=== PATIENT | male | born 1965 | race Caucasian/White ===

== ENCOUNTER → 2016-06-09 | Outpatient (CLI) | payer BC ==
--- NOTE | 2016-06-09 16:16 | RAD ---
Left knee radiographs History: Left knee pain for one day, no known injury. Comparison: None. Findings: AP, lateral, and oblique views of the left knee, performed weightbearing. No acute fracture or dislocation is identified. No joint effusion is seen. Minimal tricompartment degeneration is present. Impression: Minimal degeneration. No acute osseous abnormality identified.
== END | disposition home or self-care (01) ==
LOC: DXRADRC 15:29
PROVIDERS: ATTEND Physician Assistant
DX: M25.562 Pain in left knee (principal)
CPT/HCPCS: 73562

== ENCOUNTER → 2018-09-21 | Outpatient (CLI) | payer BC ==
--- NOTE | 2018-09-21 16:24 | RAD ---
AP supine and upright views of the abdomen Clinical indications: Abdominal pain. FINDINGS: There is moderate fecal retention within the right side of the colon. Mild fecal retention is seen with left side of the colon. No obstructive bowel pattern is evident. No air-fluid levels are seen. No free intraperitoneal air is seen. IMPRESSION: No acute abnormality. Electronically signed by: Grover Arizmendi MD (09/21/2018 4:21 PM) [id number]
== END | disposition home or self-care (01) ==
LOC: PMG 11:38
DX: K56.41 Fecal impaction (principal)
CPT/HCPCS: 74019

== ENCOUNTER → 2019-05-04 | Outpatient (CLI) | payer OTHER ==
--- NOTE | 2019-05-04 13:41 | RAD ---
Indications: Right arm for 5 days. No known injury. Two-view right humerus study: No acute fracture or dislocation or lytic process is seen. Two-view right forearm study: No acute fracture or dislocation or lytic process is seen. IMPRESSION: No acute osseous abnormality. Electronically signed by: Grover Arizmendi MD (05/04/2019 1:38 PM) [id number]
== END | disposition home or self-care (01) ==
LOC: PMG 11:37
PROVIDERS: ATTEND Registered Nurse
DX: M79.601 Pain in right arm (principal)
CPT/HCPCS: 73060; 73090